=== PATIENT | female | born 1955 | race Caucasian/White ===

== ENCOUNTER 2017-10-04 05:12 | Day surgery (SDC) | payer BC ==
[2017-09-20 08:06] VITALS: BMI 36.2
[2017-10-04] MEDS ORDERED: BUPIVACAINE HCL/PF 0.5% (5MG/ML) 10 ML VIAL ONE ×2 (07:09→07:24)
[2017-10-04] MEDS ORDERED: ePHEDrine SULFATE 50 MG/1 ML AMPULE ONE (07:15)
[2017-10-04] MEDS ORDERED: PROPOFOL 20 ML ONE ×4 (07:15)
[2017-10-04] MEDS ORDERED: SUCCINYLCHOLINE CHLORIDE 200 MG/10 ML VIAL ONE (07:15)
[2017-10-04] MEDS ORDERED: MIDAZOLAM HCL 2 MG/2 ML SINGLE DOSE VIAL ONE (07:15)
[2017-10-04] MEDS ORDERED: LIDOCAINE 1%/EPI 1:100000 (20 ML MULTI DOSE VIAL) ONE (07:24)
[2017-10-04] MEDS ORDERED: DESFLURANE GAS 240 ML BOTTLE IH ONE (07:42)
--- NOTE | 2017-10-04 07:42 | HP ---
[facility] - Chief Complaint Chief Complaint: left knee pain - Past Medical History Allergies/Adverse Reactions: Allergies Allergy/AdvReac Type Severity Reaction Status Date / Time Penicillins Allergy "HIVES" Verified 10/04/17 06:27 - Current Medications Current Medications: Home Medications Medication Instructions Recorded Multivitamin [One Daily] 1 each PO DAILY 09/20/17 Olmesartan/Hydrochlorothiazide 1 tab PO DAILY 09/20/17 [Benicar Hct 20-12.5MG Tab -] Oxycodone HCl/Acetaminophen 1 - 2 tab PO Q6H #30 tab MDD 8 10/04/17 [Percocet 5-325 mg Tablet -] Satellite Physical Exam - Physical Examination Vital Signs: Vital Signs Period Temp Pulse Resp BP Sys/Dozier Pulse Ox Last 24 Hr 98.1 F 79 20 153/83 98 General Appearance: Well Nourished, Well Developed, Alert & Oriented x3 ENT: Clear Lung: Normal air movement Heart: Regular rate & rhythm Extremities: Other (left knee-+ swelling, + ttp, dec rom, +mcmurrays, +apleys, nvi MRI + mmt, djd) Neurological: Intact, Alert, Oriented Satellite Impression/Plan - Impression/Plan Impression: left knee internal derangement Operative Procedure: left knee arthroscopy Date to be Performed: 10/04/17
[2017-10-04] MEDS ORDERED: oxyCODONE HCL 5 MG TABLET PO PRN (08:46)
[2017-10-04] MEDS ORDERED: PROMETHAZINE HCL 25 MG/1 ML VIAL IVPUSH PRN (08:46)
[2017-10-04] MEDS ORDERED: ONDANSETRON 4 MG/2 ML VIAL IVPUSH PRN (08:46)
[2017-10-04] MEDS ORDERED: LACTATED RINGERS SOLUTION 1,000 ML IV SCH (09:00)
[2017-10-04 09:01] VITALS: TEMP 97.8
--- NOTE | 2017-10-04 09:01 | OP ---
Operative Note - Note: Operative Date: 10/04/17 ([facility]) Pre-Operative Diagnosis: left knee internal derangement Operation: left knee arthroscopy with PMM Post-Operative Diagnosis: Same as Pre-op Surgeon: Rafael Ferraro Associate Professor Of Musicology: Ayush Oneal Anesthesiologist/SHELL ASSEMBLER: Avery Canales Anesthesia: General, Local Specimens Removed: shavings Estimated Blood Loss (mls): 5 Operative Report Dictated: Yes
[2017-10-04 10:39] VITALS: BP 149/85; PULSE 83
--- NOTE | 2017-10-04 11:08 | OP ---
DATE OF OPERATION: 10/04/2017 PREOPERATIVE DIAGNOSIS: Internal derangement, left knee. POSTOPERATIVE DIAGNOSIS: Internal derangement, left knee. PROCEDURE: Arthroscopy, left knee, with partial medial meniscectomy and excision of synovial plica. SURGICAL ATTENDING: Rafael Ferraro MD BUSINESS SYSTEM CONSULTANT: Ayush Oneal MD ANESTHESIA: General LMA. CLOSURE: 4-0 nylon. COMPLICATIONS: None. CONDITION: To recovery room in stable condition. DESCRIPTION OF OPERATIVE PROCEDURE: Patient was taken to the operating room on October 04, 2017. General anesthesia with LMA was administered by the anesthesiologist. Left lower extremity was prepped and draped in the usual sterile fashion. The medial and lateral infrapatellar portal sites were infiltrated with 1% Xylocaine with epinephrine. Inferolateral portal was then made with a 15-blade followed by blunt trocar, and the scope trocar was placed in this portal up into the suprapatellar pouch. Through the scope port, trocar was infused a cocktail 10 mL of 1% Xylocaine, 10 mL of 0.5% Marcaine, and 20 mL of arthroscopic saline. After the cocktail anesthetized the knee, we continued with the procedure. The undersurface of the patella was visualized to be intact, as was the trochlea, the medial and lateral gutters were visualized to be clear. No loose bodies. With valgus stress on the knee, the medial compartment was entered. The medial meniscus was found to have a small radial tear. This was debrided using the shaver and the arthroscopic biter. The medial femoral condyle was run and found to be intact, as was the medial tibial plateau. However, with flexion and extension, there was a thickened synovial plica that was abrading over the edge of the medial femoral condyle and was found to have made like an indentation in this region. This plica was debrided using the shaver until there was no thickened tissue abrading the femoral condyle. At 90 degrees, the ACL was visualized and found to be intact. In the figure 4 position, the lateral compartment was entered. The lateral meniscus was visualized, probed, found to be intact. The lateral femoral condyle was run, found to be intact, as was the lateral tibial plateau. The knee was irrigated with copious amounts of irrigation. The portals were closed using 4-0 nylon. Prior to closure, 20 mL of 0.5% Marcaine was infused through the trocar for postoperative analgesia. Sterile pressure dressing was placed over the knee. Patient awakened from anesthesia and transferred to recovery in stable condition. No complications. Estimated blood loss negligible. Javier [id number]
--- NOTE | 2017-10-10 14:33 | PATH ---
Surgical Pathology Report Patient Name: LYNNE KUMAR [facility]. Rec. #: [id number] /Age/Gender: 1955 (Age: 62) / F Account: [id number] Location: [facility] SURGICAL Taken: 10/04/2017 Received: 10/04/2017 Reported: 10/10/2017 Physicians: Javier Pacheco M.D. Specimen(s) Received LEFT KNEE SHAVINGS Clinical History Torn meniscus left knee Final Diagnosis KNEE SHAVINGS, LEFT, ARTHROSCOPY AND PARTIAL MENISCECTOMY: FRAGMENTS OF BENIGN CARTILAGE, SYNOVIUM, AND FIBROADIPOSE TISSUE. Electronically Signed Mariajose Cardona M.D. Gross Description Received in formalin, labeled "left knee shavings," is a 4.3 x 3.3 x 0.4 cm. aggregate of hidalgo-yellow soft tissue fragments. A public relations representative portion is submitted in one cassette. 10/04/2017 [facility]
== END 2017-10-04 10:41 | disposition home or self-care (01) ==
LOC: JASU-SURG 05:12
PROVIDERS: ATTEND Orthopaedic Surgery
PROC: 0SBD4ZZ Excision of Left Knee Joint, Percutaneous Endoscopic Approach (ICD-10-PCS; 2017-10-04)
PROC: 0SBD4ZZ Excision of Left Knee Joint, Percutaneous Endoscopic Approach (ICD-10-PCS; principal; 2017-10-04 07:30)
DX: M23.92 Unspecified internal derangement of left knee (principal); M67.52 Plica syndrome, left knee
CPT/HCPCS: 94760

== ENCOUNTER 2019-10-08 18:30 | Emergency (ER) | payer BC ==
[2019-10-08 18:48] VITALS: BP 170/74; PULSE 98; TEMP 98.5; BMI 36.8
--- NOTE | 2019-10-08 18:50 | PDOC ---
Rapid Medical Evaluation Chief Complaint: Pain Time Seen by Provider: 10/08/19 18:45 Medical Evaluation: Allergies Allergy/AdvReac Type Severity Reaction Status Date / Time Penicillins Allergy "HIVES" Verified 10/08/19 18:45 10/08/19 18:47 I have performed a brief in-person evaluation of this patient. The patient presents with a chief complaint of: RT knee pain s/p stepping wrong while walking today with increased pain to right knee with ambulation Pertinent physical exam findings: mild TTP posterior right knee I have ordered the following:RT knee x-rays The patient will proceed to the ED for further evaluation. Discharge Disposition - Diagnosis Left knee pain Qualifiers: Chronicity: acute Qualified Code(s): M25.562 - Pain in left knee - Discharge Dispostion Condition at time of disposition: Stable - Referrals - Patient Instructions - Post Discharge Activity
--- NOTE | 2019-10-08 20:28 | PDOC ---
History of Present Illness - General Chief Complaint: Pain Stated Complaint: KNEE PAIN Time Seen by Provider: 10/08/19 18:45 - History of Present Illness Initial Comments: 10/08/19 20:25 64-year-old female with a past medical history of hypertension presents for evaluation of right knee pain. Patient states she was walking up the steps and felt a pop in the back of her right knee. Earlier in the week she was at physical therapy getting a hamstring stretch done for lower back injuries.she is in physical therapy for and felt a strain in the back knee similar to the pain she had today however this was worse today. Past History - Past Medical History Allergies/Adverse Reactions: Allergies Allergy/AdvReac Type Severity Reaction Status Date / Time Penicillins Allergy "HIVES" Verified 10/08/19 18:45 Home Medications: Ambulatory Orders Multivitamin [One Daily] 1 each PO DAILY 09/20/17 Olmesartan/Hydrochlorothiazide [Benicar Hct 20-12.5MG Tab -] 1 tab PO DAILY 06/28 Oxycodone HCl/Acetaminophen [Percocet 5-325 mg Tablet -] 1 - 2 tab PO Q6H #30 tab MDD 8 10/04/17 Anemia: No Asthma: No Cancer: No Cardiac Disorders: No CVA: No COPD: No CHF: No Dementia: No Diabetes: No GI Disorders: No Disorders: No HTN: Yes Hypercholesterolemia: No Liver Disease: No Seizures: No Thyroid Disease: No - Surgical History Orthopedic Surgery: (HAMMERTOE CORRECTION) - Psycho Social/Smoking Cessation Hx Smoking History: Never smoked Have you smoked in the past 12 months: No If you are a former smoker, when did you quit?: 30YRS AGO Hx Alcohol Use: No Drug/Substance Use Hx: No Substance Use Type: Alcohol Hx Substance Use Treatment: No Review of Systems - Review of Systems Musculoskeletal: Yes: Joint Pain *Physical Exam - Vital Signs Last Vital Signs Temp Pulse Resp BP Pulse Ox 98.5 F 98 H 17 170/74 99 10/08/19 18:46 10/08/19 18:46 10/08/19 18:46 10/08/19 18:46 10/08/19 18:46 - Physical Exam 10/08/19 20:26 Right knee skin color and temperature normal range of motion is full and nonpainful. Thigh and calf are soft and nontender. No instability mild patellofemoral crepitation without pain. Mild tenderness about the posterior aspect of the right knee in the area of the medial and lateral gastroc. 5 out of 5 strength in plantar and dorsiflexion with the knee extended and straight thigh and calf are otherwise soft and nontender negative straight leg raise test neurovascular intact Medical Decision Making - Medical Decision Making 10/08/19 20:27 No acute fracture on radiograph today. This is probably a plantaris rupture follow-up with Dr. Oneal from orthopedic surgery as scheduled in 2 days discussed use of Tylenol for pain avoiding anti-inflammatories because of her pre-existing hypertension Discharge - Discharge Information Problems reviewed: Yes Clinical Impression/Diagnosis: Left knee pain Qualifiers: Chronicity: acute Qualified Code(s): M25.562 - Pain in left knee Condition: Stable Disposition: HOME - Admission No - Follow up/Referral Referrals: Braden Greco MD [Primary Care Provider] - Ayush Oneal MD [Staff Physician] - - Patient Discharge Instructions Additional Instructions: Return to the emergency room for worsening symptoms. Weight-bear as tolerated with crutches. Tylenol as directed for pain. Follow-up with orthopedic surgery in 2 days as scheduled - Post Discharge Activity
== END 2019-10-08 20:31 | disposition home or self-care (01) ==
LOC: JERFT 18:30
DX: M25.561 Pain in right knee (principal); I10 Essential (primary) hypertension; Z88.0 Allergy status to penicillin; X50.1XXA Overexertion from prolonged static or awkward postures, initial encounter; Y93.01 Activity, walking, marching and hiking; Y92.89 Other specified places as the place of occurrence of the external cause; Y99.8 Other external cause status
CPT/HCPCS: 73562-TC-RT-FY; 99282-25

== ENCOUNTER → 2024-04-24 | Day surgery (SDC) | payer OTHER, BC | END | disposition home or self-care (01) | LOC: JRADUS-SUR 09:53 | PROVIDERS: ATTEND Obstetrics & Gynecology | PROC: 0H9U3ZX Drainage of Left Breast, Percutaneous Approach, Diagnostic (ICD-10-PCS; principal; 2024-04-24) | DX: N60.12 Diffuse cystic mastopathy of left breast (principal) | CPT/HCPCS: 19083; 77065-TC; 87899; 88305-TC; A4648 ==